=== PATIENT | male | born 1960 | race African-American/Black ===

== ENCOUNTER 2017-06-12 21:13 | Emergency (ER) | payer BC, OTHER ==
[~2017-06-12] VITALS: Ht 185.4 cm; Wt 99.0 kg
[~2017-06-12 21:13] MED LIST: ALBU8I INH; CLAR10TA7 PO; ROBIACUDC PO; ZITH250T PO
[2017-06-12 21:15] VITALS: BP 169/85; PULSE 76; RESP 16; TEMP 97.3; O2SAT 100
--- NOTE | 2017-06-12 22:08 | PD ---
HPI . Right testicular mass for a few days Chief Complaint: Pain: Acute or Chronic Time Seen by Provider: 22:08 Travel History International Travel<30 days: No Contact w/Intl Traveler<30days: No Traveled to known affect area: No History of Present Illness HPI 56-year-old male here with complaints of a right groin pain for the past 2-3 days. Patient tells me that he thinks he may have strained something. He rates the pain as moderate. He denies any bowel or bladder changes. He has no other complaints. PFSH Past Medical History Diminished Hearing: No Respiratory: Yes Past Surgical History Other Surgery: Yes (HERNIA) Social History Alcohol Use: Yes (2 BEERS PER WEEK) Tobacco Use: Yes (1 PPD SINCE AGE 19) Allergies-Medications (Allergen,Severity, Reaction): Coded Allergies: No Known Allergies (Verified , 06/12/17) Reported Meds & Prescriptions Reported Meds & Active Scripts Active Reported Afrin Nasal [place] (Oxymetazoline HCl) 0.05% [place] 2-3 [place] EACH NARE Q12H PRN Ventolin Hfa 18 GM Inh (Albuterol Sulfate) 90 Mcg/Act Aer 2 Puff INH Q4H PRN Review of Systems General / Constitutional: No: Fever Eyes: No: Visual changes HENT: No: Headaches Cardiovascular: No: Chest Pain or Discomfort Respiratory: No: Shortness of Breath Gastrointestinal: No: Abdominal Pain Genitourinary: Positive: Other (groin pain ), No: Dysuria Musculoskeletal: No: Pain Skin: No Rash Neurologic: No: Weakness Psychiatric: No: Depression Endocrine: No: Polydipsia Hematologic/Lymphatic: No: Easy Bruising Physical Exam Narrative GENERAL: AAO x 3, no acute distress, Well-nourished, well-developed patient. SKIN: Warm and dry. No visible rashes or bruising. HEAD: Normocephalic and atraumatic. EYES: No scleral icterus. No injection or drainage. EOM intact, ENT: No nasal drainage noted. Mucous membranes pink. Airway patent. NECK: Supple, trachea midline. No JVD. CARDIOVASCULAR: Regular rate and rhythm without murmurs, gallops, or rubs. RESPIRATORY: Breath sounds equal bilaterally. No accessory muscle use. No rhonchi or rales. GASTROINTESTINAL: Abdomen soft, non-tender, nondistended. GENITAL: Mirian Tech present, testicular mass on right side, soft and tender to touch, Dr. Adler called in to examine patient as well EXTREMITIES: No cyanosis or edema. BACK: No obvious deformity. No CVA tenderness. 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 Data Data Last Documented VS Vital Signs Date Time Temp Pulse Resp B/P Pulse Ox O2 Delivery O2 Flow Rate FiO2 06/12/17 21:15 97.3 76 16 169/85 100 Room Air Orders Us Testicles W Doppler (06/12/17 22:12) Urinalysis - C+S If Indicated (06/12/17 22:12) Ketorolac Inj (Toradol Inj) (06/12/17 22:15) MDM Medical Decision Making Medical Screen Exam Complete: Yes Emergency Medical Condition: Yes Medical Record Reviewed: Yes Differential Diagnosis testicular mass, epididymitis, less likely inguinal hernia Narrative Course 56 yr old male here with groin pain. On exam, patient has a large 3 cm testicular mass. Case discussed with Dr. Adler. We will check UA and US. She will determine the disposition of the patient pending results. Condition: Stable Thalia Reeder Jun 12, 2017 22:08 disposition of the patient pending results. Condition: Stable Thalia Reeder Jun 12, 2017 22:08
[2017-06-12] MEDS ORDERED: KETOROLAC TROMETHAMINE 60 MG/2 ML (IM) VIAL IM ONE (22:15)
[2017-06-12] MEDS ORDERED: VENTAER INH (22:22)
[2017-06-12] MEDS ORDERED: AFRI0.052 EACH NARE (22:22)
[2017-06-12 22:44] LABS: BLOOD, URINE NEG (NEG); COMMENT (UR) CULT NOT INDICATED; CULTURE IF INDICATED CULT NOT INDICATED; GLUCOSE,URINE NEG (NEG); KETONE, URINE NEG (NEG); MUCUS URINE FEW /lpf (OCC); NITRITE,URINE NEG (NEG); SQUAMOUS EPITHELIAL CELL URINE <1 /hpf (0-5); URINE COLOR YELLOW (YELLW/STRAW)
--- NOTE | 2017-06-12 23:04 | RADRPT ---
EXAM DATE/TIME: 06/12/2017 22:25 [facility] COMPARISON: No previous studies available for comparison. INDICATIONS : Testicular mass. MEDICAL HISTORY : Testicular mass. Respiratory disorder. Alcohol use. Tobacco use. SURGICAL HISTORY : Hernia repair. ENCOUNTER: Initial ACUITY: 2 weeks PAIN SCORE: 7/10 LOCATION: Bilateral testicle. MEASUREMENTS: RIGHT TESTICLE: 4.1 x 3.0 x 2.3cm LEFT TESTICLE: 3.5 x 3.4 x 2.2cm FINDINGS: The right testicle is normal. Homogeneous echotexture with normal blood flow on color Doppler imaging . A 4.3 x 2.6 x 2 cm right epididymal head cyst is noted. A left-sided varicocele is noted. The epidi dymis is normal on the left. On color Doppler imaging there is either no flow or minimal flow in the varicocele. A tiny right-sided hydrocele is present. The left testicle is normal in appearance with h omogeneous echotexture and normal blood flow. No testicular masses are seen. CONCLUSION: 1. The testicles are normal. 2. Right epididymal head cyst. 3. Moderate left-sided varicocele. 4. Trace right hydrocele. Dudley Argueta MD on June 12, 2017 at 23:00 Board Certified Radiologist. This report was verified electronically.
[2017-06-12] MEDS ORDERED: NORC5TAB PO (23:11)
--- NOTE | 2017-06-12 23:12 | PD ---
Data Data Last Documented VS Vital Signs Date Time Temp Pulse Resp B/P Pulse Ox O2 Delivery O2 Flow Rate FiO2 06/12/17 21:15 97.3 76 16 169/85 100 Room Air Orders Us Testicles W Doppler (06/12/17 22:12) Urinalysis - C+S If Indicated (06/12/17 22:12) Ketorolac Inj (Toradol Inj) (06/12/17 22:15) Labs Laboratory Tests Test 06/12/17 22:25 Urine Color YELLOW Urine Turbidity CLEAR Urine pH 6.0 Urine Specific Gordon 1.031 Urine Protein TRACE mg/dL Urine Glucose (UA) NEG mg/dL Urine Ketones NEG mg/dL Urine Occult Blood NEG Urine Nitrite NEG Urine Bilirubin NEG Urine Urobilinogen 2.0 MG/DL Urine Leukocyte Esterase TRACE Urine RBC 4 /hpf Urine WBC 3 /hpf Urine Squamous Epithelial <1 /hpf Cells Urine Mucus FEW /lpf Microscopic Urinalysis Comment CULT NOT INDICATED MDM Supervised Visit with MASSIEL: Yes Narrative Course I, Dr. Adler, have reviewed the advance practice practioner's documentation and am in agreement, met with the patient face to face, made the diagnosis, and the medical decision making was done by me. *My assessment and Findings: 56-year-old male here with 2-3 days of right sided testicular pain radiating up into the groin. He is notes a lump in the right testis. On exam there is a approximate 2 x 1.5 cm mass in the superior aspect of the testis. Unclear whether this is adherent to the testis or separate clinically. This is slightly tender to palpation. There is no obvious hernia. Differential includes testicular mass, epididymal cyst, varicocele. Urinalysis was unremarkable. Ultrasound shows epididymal head cyst. Patient reassured, analgesics, supportive underwear and discharged home with urology follow-up if patient's symptoms persist. Diagnosis Primary Impression: Epididymal cyst Referrals: Evan Geronimo MD as needed Urologist as needed Additional Instruction: Pain medications as needed. Supportive underwear as discussed. Ice the affected area, help with pain and swelling. Follow-up with urologist if symptoms persist. Med/Other Pt SpecificInfo: Prescription(s) given Scripts Hydrocodone-Acetaminophen ([place])5-325 mg Tab1-2 Tab PO Q6H PRN (PAIN) #20 TAB Ref 0 Prov:Nory Adler MD 06/12/17 Disposition: 01 DISCHARGE HOME Condition: Stable Nory Adler MD Jun 12, 2017 23:12
== END 2017-06-12 23:50 | disposition home or self-care (01) ==
LOC: NEPE 21:13
DX: N50.3 Cyst of epididymis (principal)
CPT/HCPCS: 76870; 81001; 93975; 96372; 99285; J1885

== ENCOUNTER 2017-09-21 23:15 | Emergency (ER) | payer BC ==
[~2017-09-21] VITALS: Ht 177.8 cm; Wt 115.0 kg
[~2017-09-21 23:15] MED LIST changes: +AFRI0.052 EACH NARE; -ALBU8I INH; -CLAR10TA7 PO; +NORC5TAB PO; -ROBIACUDC PO; +VENTAER INH; -ZITH250T PO
[2017-09-21 23:16] VITALS: BP 178/93; PULSE 84; RESP 16; TEMP 98.4; O2SAT 96
[2017-09-21] MEDS ORDERED: SULFAMETHOXAZOLE-TRIMETHOPRIM DS 800-160 MG TAB PO ONE (23:30)
[2017-09-21] MEDS ORDERED: ACETAMINOPHEN/HYDROcodone 325 MG/5 MG TAB PO ONE (23:30)
--- NOTE | 2017-09-21 23:35 | PD ---
HPI Chief Complaint: Injury Time Seen by Provider: 23:23 Travel History International Travel<30 days: No Contact w/Intl Traveler<30days: No Traveled to known affect area: No History of Present Illness HPI 56-year-old male that presents to the ED for evaluation of possible injury to his left hand as well as his right index finger. 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 Per patient he states that he has pain every time he touches his right index finger but is not constant. Per patient he hurts to bend it. He is unsure if he has a fracture in it. He also states that about 2 days ago he got torn on the dorsal aspect of his left hand and he believes that he got the full torn out but now he has swelling and pain in the area. He states that he is up-to-date with his tetanus. Per patient the pain on the right hand is about 5 out of 10 with touch. On the left hand is about 4 out of 10 with touch. He is able to move all extremities. He denies any numbness, tilling, weakness. No fevers chills or sweats. No IV drug abuse. No allergies to medication. Has not seen anybody for this. [facility] Past Medical History Medical History: Denies Significant Hx Diminished Hearing: No Respiratory: Yes (ALLERGIES) Past Surgical History Other Surgery: Yes (HERNIA; HEMRRHOIDS) Social History Alcohol Use: Yes (2 BEERS PER WEEK) Tobacco Use: Yes (1 PPD SINCE AGE 19) Substance Use: No Allergies-Medications (Allergen,Severity, Reaction): Coded Allergies: No Known Allergies (Verified Adverse Reaction, Unknown, 09/21/17) Reported Meds & Prescriptions Reported Meds & Active Scripts Active No Active Prescriptions or Reported Medications Review of Systems Except as stated in HPI: all other systems reviewed are Neg Physical Exam Narrative GENERAL: SKIN: Warm and dry. HEAD: Atraumatic. Normocephalic. EYES: Pupils equal and round. No scleral icterus. No injection or drainage. ENT: No nasal bleeding or discharge. Mucous membranes pink and moist. Tongue is midline. No uvula deviation. NECK: Trachea midline. No JVD. CARDIOVASCULAR: Regular rate and rhythm. RESPIRATORY: No accessory muscle use. Clear to auscultation. Breath sounds equal bilaterally. GASTROINTESTINAL: Abdomen soft, non-tender, nondistended. Hepatic and splenic margins not palpable. MUSCULOSKELETAL: Extremities without clubbing, cyanosis, or edema. No obvious deformities. Full range of motion of all extremities. Patient does have some pain which resulted with touch on the DIP of the right hand. Able to move it fully however. No obvious bruising or swelling noted. No deformity noted. Good capillary refill. No obvious erythema or mass. Patient also has swelling noted on the dorsal aspect of the left hand around the third MIP. Some erythema but no warmness to touch or fluctuance. Good capillary refill. Sensation intact bilaterally. Tender to touch around the area of the swelling. No other deformities noted. NEUROLOGICAL: Awake and alert. No obvious cranial nerve deficits. Motor grossly within normal limits. Five out of 5 muscle strength in the arms and legs. Normal speech. PSYCHIATRIC: Appropriate mood and affect; insight and judgment normal. Data Data Last Documented VS Vital Signs Date Time Temp Pulse Resp B/P (MAP) Pulse Ox O2 Delivery O2 Flow Rate FiO2 09/21/17 23:16 98.4 84 16 178/93 (121) 96 Room Air Orders Orders Finger ([id number]) (09/21/17 ) Hand, Complete ([id number]) (09/21/17 ) Sulfamet-Trimeth Ds 800-160 Mg (Bactrim (09/21/17 23:30) Acetamin-Hydrocod 325-5 Mg (Reedy 5-325 (09/21/17 23:30) MDM Medical Decision Making Medical Screen Exam Complete: Yes Emergency Medical Condition: Yes Medical Record Reviewed: Yes Interpretation(s) X-ray of the right index finger show no sign of bony injury. X-ray of the left hand show no sign of acute bony injury or foreign body. Differential Diagnosis Cellulitis versus puncture wound versus fracture versus foreign body Narrative Course 56-year-old male that presents to the ED for evaluation of right index finger injury as well as left hand injury. Patient was properly examined and was found to have signs and symptoms which appear to be consistent with likely infection of the left hand from puncture wound as well as possible bony injury to the right index finger. X-rays were ordered to rule out any sign of foreign body and bony injury. X-rays were negative for both. Patient was reassured. At this time patient will be discharged home with prescriptions for diclofenac sodium and Bactrim for infection. Told to follow closely with PCP. See ED worsening symptoms. Ice or warm compresses as needed. Diagnosis Primary Impression: Infected wound Additional Impression: Finger injury Qualified Codes: S69.91XA - Unspecified injury of right wrist, hand and finger (s), initial encounter Patient Instructions: General Instructions, Narcotic given in the ED Additional Instructions: Take medications as prescribed. Follow with PCP. Ice or warm compresses. See ED worsening symptoms. Med/Other Pt SpecificInfo: Prescription(s) given Scripts No Active Prescriptions or Reported Meds Disposition: 01 DISCHARGE HOME Condition: Josh Barney Sep 21, 2017 23:35
[2017-09-21] MEDS ORDERED: DICL75TA PO (23:36)
[2017-09-21] MEDS ORDERED: BACT800T5 PO (23:36)
--- NOTE | 2017-09-21 23:57 | RADRPT ---
EXAM DATE/TIME: 09/21/2017 23:44 [facility] COMPARISON: No previous studies available for comparison. INDICATIONS : Right hand second digit pain. Patient states he hit his finger on something one week ago. MEDICAL HISTORY : None. SURGICAL HISTORY : None. ENCOUNTER: Initial ACUITY: 1 week PAIN SCORE: 6/10 LOCATION: Right hand, second digit. FINDINGS: Examination of the second digit of the right hand demonstrates no evidence of fracture or dislocation . No radiopaque foreign bodies are seen. The soft tissues are intact. CONCLUSION: Unremarkable examination of the right second finger. Abilio Das MD on September 21, 2017 at 23:55 Board Certified Radiologist. This report was verified electronically.
--- NOTE | 2017-09-22 00:06 | RADRPT ---
EXAM DATE/TIME: 09/21/2017 23:44 [facility] COMPARISON: No previous studies available for comparison. INDICATIONS : Left hand pain and swelling. Patient states he thinks a thorn is stuck in his hand. MEDICAL HISTORY : None. SURGICAL HISTORY : None. ENCOUNTER: Initial ACUITY: 3 days PAIN SCORE: 8/10 LOCATION: Left hand. FINDINGS: Three view examination of the left hand demonstrates no soft tissue swelling, dislocation, or fractur e. The carpal bones appear intact. The interphalangeal and metacarpophalangeal joints are intact. Bony mineralization is normal. CONCLUSION: Unremarkable examination of the left hand. A marker was used posteriorly in the site of pain. There may be some soft tissue swelling but no underlying foreign body or fracture. Abilio Das MD on September 22, 2017 at 0:04 Board Certified Radiologist. This report was verified electronically.
== END 2017-09-22 00:23 | disposition home or self-care (01) ==
LOC: NEPD 23:15
DX: S69.91XA Unspecified injury of right wrist, hand and finger(s), initial encounter (principal); X58.XXXA Exposure to other specified factors, initial encounter
CPT/HCPCS: 73130; 73140; 99284

== ENCOUNTER 2017-10-02 03:23 | Emergency (ER) | payer BC ==
[~2017-10-02 03:23] MED LIST changes: -AFRI0.052 EACH NARE; +BACT800T5 PO; +DICL75TA PO; -NORC5TAB PO; -VENTAER INH
[2017-10-02 03:25] VITALS: BP 171/86; PULSE 78; RESP 16; TEMP 98.9; O2SAT 100
[2017-10-02] MEDS ORDERED: DICL75TA PO (03:46)
[2017-10-02] MEDS ORDERED: PRED5TAB PO (03:46)
[2017-10-02] MEDS ORDERED: DOXY1TAB6 PO (03:46)
--- NOTE | 2017-10-02 04:16 | PD ---
HPI Chief Complaint: Allergic/Adverse Reaction Time Seen by Provider: 04:03 Travel History International Travel<30 days: No Contact w/Intl Traveler<30days: No Traveled to known affect area: No History of Present Illness HPI patient 56-year-old male who was here a few days ago after having a small infection to the dorsum of the left hand. He is placed on doxycycline and Bactrim at that time. He states sometime later he went to another physician and was started on some prednisone as well. He is presenting today for evaluation of itchiness in his hands as well as his feet as well as his tongue. He thinks that he is having an allergic reaction to the antibiotics. Denies any difficulty breathing denies any tongue swelling. Denies any fevers or rash. The symptoms are moderate to severe gradually worsening over the past few hours. PFSH Past Medical History Diminished Hearing: No Respiratory: Yes (ALLERGIES) ?: Not Past Surgical History Other Surgery: Yes (HERNIA; HEMRRHOIDS) Social History Alcohol Use: Yes (2 BEERS PER WEEK) Tobacco Use: Yes (1 PPD SINCE AGE 19) Substance Use: No Allergies-Medications (Allergen,Severity, Reaction): Coded Allergies: No Known Allergies (Verified Adverse Reaction, Unknown, 09/21/17) Reported Meds & Prescriptions Reported Meds & Active Scripts Active Diclofenac Sodium DR (Diclofenac Sodium) 75 Mg Tabdr 75 Mg PO BID PRN Bactrim DS (Sulfamethoxazole-Trimethoprim) 800-160 Mg Tab 1 Tab PO BID 10 Days Reported Diclofenac Sodium DR (Diclofenac Sodium) 75 Mg Tabdr 75 Mg PO BID Prednisone 5 Mg Tab 5 Mg PO DAILY Doxycycline Hyclate DR (Doxycycline Hyclate) 100 Mg Tab 100 Mg PO BID Review of Systems Except as stated in HPI: all other systems reviewed are Neg Physical Exam Narrative GENERAL: Well-developed well-nourished in no obvious distress, sleeping comfortably on ER stretcher. SKIN: Focused skin assessment warm/dry. No rash no wound seen on his person, there is no obvious infection of either hand. HEAD: Atraumatic. Normocephalic. EYES: Pupils equal and round. No scleral icterus. No injection or drainage. ENT: No nasal bleeding or discharge. Mucous membranes pink and moist. I do not see any obvious skin sloughing or lesion intraorally. NECK: Trachea midline. No JVD. CARDIOVASCULAR: Regular rate and rhythm. No murmur appreciated. RESPIRATORY: No accessory muscle use. Clear to auscultation. Breath sounds equal bilaterally. GASTROINTESTINAL: Abdomen soft, non-tender, nondistended. Hepatic and splenic margins not palpable. MUSCULOSKELETAL: No obvious deformities. No clubbing. No cyanosis. No edema. NEUROLOGICAL: Awake and alert. No obvious cranial nerve deficits. Motor grossly within normal limits. Normal speech. PSYCHIATRIC: Appropriate mood and affect; insight and judgment normal. Data Data Last Documented VS Vital Signs Date Time Temp Pulse Resp B/P (MAP) Pulse Ox O2 Delivery O2 Flow Rate FiO2 10/02/17 05:12 10/02/17 03:25 98.9 78 16 100 Room Air Orders Orders Ed Discharge Order (10/02/17 04:52) [facility] Medical Decision Making Medical Screen Exam Complete: Yes Emergency Medical Condition: Yes Differential Diagnosis Allergic reaction, hives, systemic bacterial infection unlikely. Narrative Course the patient roomed in emergency department, appears well and nontoxic. Symptoms could be brittany to allergic reaction to one or both of the antibiotics. At this time his hand appears to be healing well in no obvious source of infection I recommended he discontinue the antibiotics this time continuing the steroids and as needed Benadryl. He is driving home so we'll hold any Benadryl here. I discussed return to ED criteria and discussed worsening infection of the hand. He is stable for discharge. Diagnosis Primary Impression: Allergic reaction Qualified Codes: T78.40XA - Allergy, unspecified, initial encounter Additional Instructions: Stop taking bactrim (trimethoprim/sulfamethoxazole) and doxycycline. Continue prednisone. Take benadryl 25mg orally every 6 hours as needed for itching. Do not drive for 6 hours after taking benadryl. Call your regular physician tomorrow. Disposition: 01 DISCHARGE HOME Condition: Stable Roby Murphy MD Oct 02, 2017 04:16
== END 2017-10-02 05:13 | disposition home or self-care (01) ==
LOC: NEPE 03:23
DX: T78.40XA Allergy, unspecified, initial encounter (principal)
CPT/HCPCS: 99282